=== PATIENT | male | born 1945 | race Caucasian/White ===

== ENCOUNTER → 2017-10-08 | Outpatient (CLI) | payer OTHER, MEDICARE | END | disposition home or self-care (01) | LOC: C.LAB1850 09:26 | PROVIDERS: ATTEND Internal Medicine | DX: R97.20 Elevated prostate specific antigen [PSA] (principal); Z13.220 Encounter for screening for lipoid disorders ==

== ENCOUNTER 2021-01-23 12:39 | Inpatient (IN) ==
--- NOTE | 2020-11-29 09:05 | PAT Medication Instructions ---
Medication Instructions Date of Service November 29, 2020 Home Medications Medication Instructions Recorded tamsulosin 0.4 mg capsule 0.4 mg PO HS #90 cap 10/17/20 cholecalciferol (vitamin D3) 25 mcg (1,000 unit) capsule 25 mcg PO QAM lutein 20 mg capsule 20 mg PO QAM triamcinolone acetonide 0.1 % topical cream 1 applic TOP BID PRN tamsulosin 0.4 mg capsule 0.4 mg PO HS STOP taking 2 weeks before surgery (or as soon as possible if surgery is within 2 weeks) lutein 20 mg capsule 20 mg PO QAM STOP taking 24 hours before surgery triamcinolone acetonide 0.1 % topical cream 1 applic TOP BID PRN DO NOT take the morning of surgery cholecalciferol (vitamin D3) 25 mcg (1,000 unit) capsule 25 mcg PO QAM Take evening before surgery tamsulosin 0.4 mg capsule 0.4 mg PO HS Other Notes If you have any questions please call us at [phone] or [phone] or [phone] or [phone]
--- NOTE | 2020-11-30 13:27 | Anesthesiology Consultation ---
Date of Service November 30, 2020 Assessment & Plan (1) Encounter for pre-operative examination: - Abnormal preop CXR: Noted "2.4 cm opacity which projects over the mid to upper right lung. Possible smaller density projecting over the left lung. These are indeterminate and could reflect pleural plaques. However, pulmonary nodules cannot be excluded." Awaiting response from PCP. - COVID screening: Per assessment on 11/29: Travel screen negative, no known COVID-19 positive contacts or current COVID-19 related symptoms. Patient vaccinated. Surgeon arranging preop COVID testing. Awaiting results. Chart Review Chart Review: Patient seen in Pre Admission Testing Teaching & Discussion Pre-Anesthesia Teaching/Discussion Notes: Instructed NPO after midnight before surgery,except medications with 15 cc of water. Medication instructions provided according to the PAT guidelines. History Surgery Operation Date: 12/12/20 10:55 Proposed Procedures p Transurethral Resection Prostate - Shashi Angelo MD Height/Weight Height: 5 ft 8 in Weight: 63.6 kg Allergies Allergy/AdvReac Type Severity Reaction Status Date / Time No Known Allergies Allergy Verified 11/30/20 10:51 Medications Home Medications Medication Instructions Recorded Confirmed Last Taken cholecalciferol (vitamin D3) 25 25 mcg PO QAM 10/12/20 11/30/20 10/12/20 mcg (1,000 unit) capsule lutein 20 mg capsule 20 mg PO QAM 10/12/20 11/30/20 10/05/20 triamcinolone acetonide 0.1 % 1 applic TOP BID PRN gm 10/12/20 11/30/20 Unknown topical cream tamsulosin 0.4 mg capsule 0.4 mg PO HS #90 cap 10/17/20 11/30/20 Unknown Past Medical History Medical History Abdominal hernia "Small" Anemia Arthritis "Mild" BPH (benign prostatic hyperplasia) Escalante catheter in place Hx of basal cell carcinoma Ear region s/p excision Hx of blood clots LLE possible DVT vs superficial blood clot (3 years ago), was never put on AC/just monitored > resolved Hx of squamous cell carcinoma Head s/p excision Exercise / Class Metabolic Activity II 4-5 Yardwork/Stairs/Walk up hill Past Family History Family History Mother Alzheimer disease Grandfather (Maternal) Diabetes Brother Myocardial infarction Schizophrenia Denies family history of Ovarian cancer Prostate cancer Breast cancer Colorectal cancer Past Surgical History Surgical History H/O knee surgery Right History of colonoscopy History of cystoscopy History of nasal cauterization S/P foot surgery RT LONA'S DEFORMITY REPAIR + BURSA EXCISION [place] teeth removed Past Anesthesia History No Hx of Anesthesia Complications (except remote PONV) and No Family Hx of Anesthesia Complications History of PONV No Hx of Motion Sickness and History of PONV (remote hx) Social History Smoking Status: Never smoker Do You Dip or Chew Tobacco: No Hx Alcohol Use: Yes Alcohol type: beer alcohol intake frequency: 0-2 drinks per day (No ETOH x several months in setting of worsening urinary issues but previously 1-2 beers/night) Hx Substance Use: No substance use type: does not use Review of Systems Patient denies chest pain, shortness of breath, dyspnea on exertion, fever, chills, cough, wheezing, palpitations. Physical Exam Vital Signs VITALS BP 123/64 P 60 TEMP 98.5 SP02 100%RA RESP 16 PHYSICAL Full cervical extension range of motion. Full TMJ range of motion. TMD 4 finger breaths Mallampati Score 3 Dentition: intact, + crowns (including upper front), + cracked tooth (left upper side) Lungs: clear throughout to auscultation Cardiac: regular rate and rhythm, no murmurs noted Spine: normal Carotid arteries: negative bruit Extremities: no edema Short anaya Lab Results Anesthesia Preop Results Results Anesthesia Widget: WBC 6.83 K/uL (4.8-10.8) 11/30/20 Hgb 12.4 g/dL (14.0-18.0) L 11/30/20 Hct 38.4 % (42-52) L 11/30/20 Plt 247 K/uL (130-400) 11/30/20 Na 140 mmol/L (136-145) 11/30/20 K 4.3 mmol/L (3.5-5.1) 11/30/20 Cl 109 mmol/L (98-107) H 11/30/20 CO2 27 mmol/L (21-32) 11/30/20 BUN 24 mg/dl (7-18) H 11/30/20 Creat 0.94 mg/dl (0.6-1.4) 11/30/20 Glucose Level 96 mg/dl (70-99) 11/30/20 Testing Laboratory Results 11/30/20 UA small blood, positive nitrite, negative leuk esterase, 1+ bacteria Electrocardiogram Date: 11/30/20 SB with first degree ACV at 54bpm. LAD. RBBB. Chest X-Ray Date: 11/30/20 No acute cardiopulmonary findings. 2.4 cm opacity which projects over the mid to upper right lung. Possible smaller density projecting over the left lung. These are indeterminate and could reflect pleural plaques. However, pulmonary nodules cannot be excluded. A chest CT is recommended for further evaluation.
--- NOTE | 2021-01-23 11:55 | History & Physical Report ---
Date of Service January 23, 2021 Assessment & Plan (1) Urinary retention due to benign prostatic hyperplasia: Plan: 75-year-old male who is Escalante catheter bound due to BPH and obstruction. Presents for TURP today. History of Present Illness Chief Complaint: BPH with urinary retention Primary Care Provider: Antione Matthews MD 75-year-old male who I previously saw and is scheduled for a TURP as he is Escalante catheter bound due to significantly enlarged prostate. Due to Covid, his cases have been rescheduled and he needed another history and physical. Preop urine culture with staph and he took 7 days of Bactrim prior. He has had no other issues preoperatively. Allergies Allergy/AdvReac Type Severity Reaction Status Date / Time No Known Allergies Allergy Verified 01/13/21 09:46 Home Medications Medication Instructions Recorded Confirmed Type cholecalciferol (vitamin D3) 25 25 mcg PO QAM 10/12/20 01/13/21 History mcg (1,000 unit) capsule lutein 20 mg capsule 20 mg PO QAM 10/12/20 01/13/21 History triamcinolone acetonide 0.1 % 1 applic TOP BID PRN gm 10/12/20 01/13/21 History topical cream tamsulosin 0.4 mg capsule 0.4 mg PO HS #90 cap 10/17/20 01/13/21 Rx sulfamethoxazole 800 1 tab PO BID 14 Days #28 tab 01/08/21 01/13/21 Rx mg-trimethoprim 160 mg tablet (Bactrim DS) Past Med/Surg History Medical History Abdominal hernia "Small" Anemia Arthritis "Mild" BPH (benign prostatic hyperplasia) Escalante catheter in place Hx of basal cell carcinoma Ear region s/p excision Hx of blood clots LLE possible DVT vs superficial blood clot (3 years ago), was never put on AC/just monitored > resolved Hx of squamous cell carcinoma Head s/p excision Surgical History H/O knee surgery Right History of colonoscopy History of cystoscopy History of nasal cauterization S/P foot surgery RT LONA'S DEFORMITY REPAIR + BURSA EXCISION [place] teeth removed Family History Mother Alzheimer disease Grandfather (Maternal) Diabetes Brother Myocardial infarction Schizophrenia Denies family history of Ovarian cancer Prostate cancer Breast cancer Colorectal cancer Social History Smoking Status: Never smoker Second Hand Exposure: Yes; Hx Alcohol Use: Yes Alcohol type: beer Hx Substance Use: No Preferred Language: Spanish Communication Ability: Effective Visual Impairment: No Limitations Hearing Ability: Hard of Hearing Market Intelligence Consultant Required: No Beliefs That Will Affect Care: None marital status: Single Current Living Situation: Significant Other current occupational status: retired Feels Safe at Home: Yes Childhood Exposure to Second-Hand Smoke: Yes Dental Care, Regularly: Yes Physical Activity Frequency: Daily Seatbelt Use: always Sunscreen Use: No Assistive Devices: Glasses Review of Systems 14 point review of systems negative outside of what is listed above in HPI Physical Exam Physical Exam: General: Alert and oriented, no acute distress HEENT: Normocephalic, mucous membranes moist Cardiovascular: Regular rate Pulmonary: Nonlabored respirations Abdomen: Nondistended : Deferred to the OR. Extremities: Moves all 4 spontaneously Neuro: No gross deficits Skin: Warm, dry, no rashes noted
[~2021-01-23 12:39] MED LIST: GENTAMICIN SULFATE 160 MG in DEXTROSE 5% 100 ML IV SCH; LR 15ML/HR IV SCH; VANCOMYCIN HCL 1,000 MG in SODIUM CHLORIDE 0.9% 250 ML IV SCH; VANCOMYCIN HCL 1,000 MG in SODIUM CHLORIDE 0.9% 500 ML IV SCH; ceFAZolin 2000MG 2,000 MG/15 ML SYR IV SCH
[2021-01-23] MEDS ORDERED: ATROPINE SULFATE 0.1 MG/ML 10ML SYR IV PRN (12:46)
[2021-01-23] MEDS ORDERED: ePHEDrine sulfate 50 MG/ML AMP IV PRN (12:46)
[2021-01-23] MEDS ORDERED: ONDANSETRON INJ 2 MG/ML 2 ML VIAL IV PRN (12:46)
[2021-01-23] MEDS ORDERED: fentaNYL citrate 100 MCG/2 ML VIAL IV PRN (12:46)
[2021-01-23] MEDS ORDERED: fentaNYL citrate 100 MCG/2 ML VIAL ONE ×2 (13:40→14:33)
[2021-01-23] MEDS ORDERED: MIDAZOLAM HCL 1 MG/ML 2ML VIAL ONE (13:40)
[2021-01-23] MEDS ORDERED: VANCOMYCIN CONSULT ACTIVE PRN (14:00)
[2021-01-23] MEDS ORDERED: GENTAMICIN CONSULT ACTIVE PRN (14:00)
[2021-01-23] MEDS ORDERED: PROPOFOL IV EMULSION 10 MG/ML 20 ML VIAL IV ONE ×2 (14:29→14:32)
[2021-01-23] MEDS ORDERED: ONDANSETRON INJ 2 MG/ML 2 ML VIAL ONE (14:29)
[2021-01-23] MEDS ORDERED: LIDOCAINE 2% 2 ML VIAL/AMP(20MG/ML) INFIL ONE (14:29)
[2021-01-23] MEDS ORDERED: DEXAMETHASONE SOD INJ 4 MG/ML VIAL ONE (14:29)
[2021-01-23] MEDS ORDERED: ePHEDrine sulfate 50 MG/ML AMP ONE (14:32)
[2021-01-23] MEDS ORDERED: BELLADONNA/OPIUM SUPP 60 MG SUPP PR ONE ×2 (16:06→16:12)
[2021-01-23] MEDS ORDERED: KETOROLAC 30 MG/ML VIAL ONE (16:34)
[2021-01-23] MEDS ORDERED: ACETAMINOPHEN 325 MG TAB PO PRN (16:49)
[2021-01-23] MEDS ORDERED: oxyCODONE HCL IR 5 MG TAB (IMMEDIATE RELEASE) PO PRN (16:49)
--- NOTE | 2021-01-23 16:59 | Post Operative Brief Note ---
PG Immediate Post Op with CF Date of Surgery January 23, 2021 Pre & Post Diagnosis Operation Date: 01/23/21 14:15 Pre-Op Diagnosis: Urinary Retention due to Benign Prostatic Hypertrophy Post-Op Diagnosis: Urinary Retention due to Benign Prostatic Hypertrophy I identified the patient and participated in the time-out.: Yes Procedure Operation Date: 01/23/21 14:15 Actual Procedures p Transurethral Resection Prostate(Not Applicable) - Shashi Angelo MD Surgeon Shashi Angelo MD Front Office Specialist None Estimated Blood Loss 200 Findings Consistent with Post-Op Diagnosis 1. Significantly enlarged prostate with trilobar hyperplasia in 4 to 4-1/2 cm prostatic fossa. 2. Ureteral orifices near bladder neck but uninvolved 3. Due to size of prostate and the fact that it was fairly vascular, after 2 hours of resection opted to stop and place Escalante catheter in place on CBI. Patient may require second stage TURP due to size of prostate. Specimens Specimen Description: A. Prostate Chips Drains Escalante Catheter (24fr 3way 30cc balloon, on CBI) Anesthesia Type General Complications None Disposition Accompanied Patient To Recovery: Yes Disposition: Recovery Room Overlapping Procedure I was present for: the critical portions of procedure.
[2021-01-23] MEDS ORDERED: LACTATED RINGER'S 1,000 ML IV SCH (17:00)
--- NOTE | 2021-01-23 17:07 | Operative Report ---
PG Post Operative Report Pre & Post Diagnosis Operation Date: 01/23/21 14:15 Pre-Op Diagnosis: Urinary Retention due to Benign Prostatic Hypertrophy Post-Op Diagnosis: Urinary Retention due to Benign Prostatic Hypertrophy I identified the patient and participated in the time-out.: Yes Procedure Operation Date: 01/23/21 14:15 Actual Procedures p Transurethral Resection Prostate(Not Applicable) - Shashi Angelo MD Surgeon Shashi Angelo MD Air Conditioning Unit Tester None Estimated Blood Loss 200 Findings Consistent with Post-Op Diagnosis 1. Significantly enlarged prostate with trilobar hyperplasia in 4 to 4-1/2 cm p rostatic fossa. 2. Ureteral orifices near bladder neck but uninvolved 3. Due to size of prostate and the fact that it was fairly vascular, after 2 hours of resection opted to stop and place Escalante catheter and place on CBI. Patient may require second stage TURP due to size of prostate if does not pass void trial. Specimens Prostate chips Drains 24Fr [address] hematuria catheter on CBI Anesthesia Type General Complications None Disposition Accompanied Patient To Recovery: Yes Disposition: Recovery Room Indications 75-year-old male currently in urinary retention due to BPH. Cystoscopy revealed significant trilobar hyperplasia with a significant intravesical component. Prostatic fossa was 4 to 4-1/2 cm. Preop urine culture was staph aureus and he was treated with 7 days of Bactrim. He presents for TURP. Description of Procedure After informed consent was obtained, the patient was transported to the operative suite. General anesthesia was induced. They were placed in dorsal lithotomy position and prepped and draped in sterile fashion. They received preoperative vancomycin and gentamicin based on preop urine culture. An appropriate surgical timeout was performed. The penile urethra was sequentially dilated from 20-30 Welsh. 27 Welsh resectoscope was inserted. Knox cystoscopy revealed no lesions. The ureteral orifices were near the bladder neck. I started at the 5 o'clock position of the prostate and vaporized this down to just distal to the verumontanum. I then moved over to the 7 o'clock position of the prostate and vaporized this down to just distal to the verumontanum. I repeatedly checked the ureteral orifice ease to ensure they were not involved, which they were not. Due to the significant size and vascularity of his prostate, after 2 hours of resection I opted to place a Escalante catheter and put him on CBI and possibly bring him back for a second stage TURP if he is unable to pass a voiding trial. I cut a hole at the tip of the 24 Welsh three-way hematuria catheter and placed this over a Super Stiff wire to avoid undermining the bladder neck. The balloon was inflated with 30 cc of sterile water. I irrigated the catheter while on traction and urine was light red. This concluded the end of the case. The catheter was taped to the leg on traction and was hooked up to CBI. A belladonna suppository was placed for pain control. All counts were correct at the end of the case. I was present scrubbed and actively participated for the entire to the procedure. Plan: 1. Will monitor patient overnight on CBI. We will continue Bactrim treatment. We will check hemoglobin and BMP in the morning. Plan will be to wean CBI and discharge home with catheter if is clear in the morning. I attest to the content of the Intraoperative Record and any orders documented therein. Any exceptions are noted below.
--- NOTE | 2021-01-23 17:19 | Anesthesiology Progress Note ---
Date of Service January 23, 2021 Anesthesia Post Procedure Vital Signs Vital Signs: Temp Pulse Pulse Resp BP Pulse Ox 01/23/21 17:15 62 19 116/60 100 01/23/21 17:05 58 L 17 112/64 97 01/23/21 16:55 59 L 16 107/62 100 01/23/21 16:48 36.0 C L 56 L 12 127/69 100 01/23/21 13:22 36.5 C 58 L 20 169/88 H 98 Pain Intensity Penis: Pain Intensity: 2 Transfer of Care Handoff Completed per policy Notes Mental Status: alert / awake / arousable Patient Amnestic to Procedure: Yes Nausea / Vomiting: adequately controlled Pain: adequately controlled Airway Patency, RR, SpO2: stable & adequate BP & HR: stable & adequate Hydration State: stable & adequate Anesthetic Complications: no major complications apparent and Pt Satisfied with anesthetic care
[2021-01-23] MEDS ORDERED: TAMSULOSIN HCL 0.4 MG CAP PO SCH (21:00)
[2021-01-23] MEDS: OXYBUTYNIN CHLORIDE 5 MG TAB PO SCH (22:17)
--- NOTE | 2021-01-24 07:02 | Urology Progress Note ---
Date of Service January 24, 2021 Assessment & Plan (1) BPH (benign prostatic hyperplasia): Plan: 75-year-old male who is status post TURP on 01/23/2021. Monitored overnight on CBI. Plan: Afebrile with stable vitals. Pain well controlled. Escalante catheter with light pink urine on slow drip CBI on traction. Traction taken off and left on slow drip. Nursing advised to clamp CBI and allow patient to walk. We will reassess hematuria consistency and hopefully discharge later today Can have regular diet Continue Bactrim We will put in follow-up to see him in roughly 1 week for void trial. Discussed that he may need second stage TURP due to size of prostate. Admission and Anticipated Discharge Date Admission Date: January 23, 2021 Subjective No acute issues overnight. Urine is light pink on slow drip CBI still on traction. Pain well controlled. Afebrile with stable vitals. Escalante was taken off traction and kept on slow drip. Patient yet to ambulate so adviced walking this morning. Hemoglobin 11 this morning, was 12 8 preoperatively. No concern, likely mostly delusional. Creatinine stable. Review of Systems Review of Systems: 14 point review of systems negative outside of what is listed above in HPI Physical Exam Physical Exam: General: Alert and oriented, no acute distress HEENT: Normocephalic, mucous membranes moist Cardiovascular: Regular rate Pulmonary: Nonlabored respirations Abdomen: Soft, nontender, nondistended : Circumcised phallus with orthotopic meatus. 24 Syriac three-way catheter on slow drip CBI with light pink urine, on traction. Extremities: Moves all 4 spontaneously Neuro: No gross deficits Skin: Warm, dry, no rashes noted Results & Data ([facility]) Vital Signs (Past 12 Hours) Vital Signs Temp Pulse Resp BP Pulse Ox 01/24/21 06:56 37.3 C 56 L 14 118/54 L 97 01/23/21 19:20 36.8 C 60 16 105/60 98 PG Care Time/CCT Total # of Minutes Spent Total Time Spent with Patient: Total time spent is greater than 50% in coordination of care (as documented) at patient's floor/unit and/or counseling patient: [place] [address] Subseq Hosp Care Lvl 2 Patient Type Established Diagnoses BPH (benign prostatic hyperplasia) N40.0
[2021-01-24 07:06] LABS: BUN Creatinine Ratio 19.1 (10-20); Calcium 8.1 mg/dl (8.5-10.1); Creatinine Clr Calc Pharmacy 67.6 ml/min; Est GFR (African American) 98.1 ml/min; Est GFR (Non-African American) 84.6 ml/min; Potassium 4.5 mmol/L (3.5-5.1)
[2021-01-24] MEDS: OXYBUTYNIN CHLORIDE 5 MG TAB PO SCH ×2 (08:46→13:49)
[2021-01-24] MEDS ORDERED: SULFAMETHOXAZOLE/TRIMETHOPRIM DS 800/160MG TAB PO SCH (09:00)
--- NOTE | 2021-02-01 13:11 | Discharge Summary ---
Date of Service February 01, 2021 Admission HPI Per Admitting Provider 75-year-old male who I previously saw and is scheduled for a TURP as he is Donohue catheter bound due to significantly enlarged prostate. Due to Covid, his cases have been rescheduled and he needed another history and physical. Preop urine culture with staph and he took 7 days of Bactrim prior. He has had no other issues preoperatively. Principal Diagnosis BPH with urinary retention Discharge Exam General: Alert and oriented, no acute distress HEENT: Normocephalic, mucous membranes moist Cardiovascular: Regular rate Pulmonary: Nonlabored respirations Abdomen: Nondistended : 24 Cook Islander three-way Donohue cath draining light red urine Extremities: Moves all 4 spontaneously Neuro: No gross deficits Skin: Warm, dry, no rashes noted Discharge Data Allergies Allergy/AdvReac Type Severity Reaction Status Date / Time No Known Allergies Allergy Verified 01/23/21 13:00 Procedures Performed Operation Date: 01/23/21 14:15 Actual Procedures p Transurethral Resection Prostate(Not Applicable) - Shashi Angelo MD Hospital Course (1) Urinary retention due to benign prostatic hyperplasia: 75-year-old male with history of BPH and urinary retention status post TURP Plan: 1. Continuous bladder irrigation capped and urine remains light pink. 2. Hemodynamically stable, afebrile and labs stable. 3. Patient stable for discharge home with Donohue catheter. He will return in 1 week for a void trial in clinic. Total Time Total Time Spent Total Time Spent (In Minutes): 10 minutes Discharge Plan Discharge Items Patient Disposition: Home - Self-Care Reason For Visit: Urinary Retention due to BPH Discharge Diagnosis: BPH with urinary retention Activity: Per Instructions section Lifting: No more than 5 pounds Bathing: No limitations Bathing Comment: Can shower with donohue catheter Sexual Activity: Wait until after follow-up appointment Exercise/Sports: None Driving/Machine Use: No limitations Weightbearing: Full weightbearing Non-emergency contact: Surgeon Call non-emergency contact if: you have any medication questions, your pain is not controlled and your temperature is above 101 Follow-up/Referrals: Antione Matthews MD [Primary Care Provider] - Shashi Angelo MD [Physician] - Diet: Regular Addtl Attending Provider Instructions: Please call our office at [phone] with any questions, concerns or need to reschedule appointments for any reason. We are happy to assist you. -Continue your home medications unless changes listed below. -Finish your course of Bactrim -Nursing will show you how to take care of your catheter. -Take Ditropan as needed for Donohue catheter discomfort. This can cause dry eyes, dry mouth, blurry vision and constipation -Take stool softener twice daily to avoid constipation -Call the office if your Donohue catheter is not draining, worsening passage of blood clots through your urineor you have fevers greater than 101 F -You will get called regarding a visit to have your catheter removed and to ensure you can urinate. Pending Studies at Discharge: No Stand-Alone Forms: My [facility] [employer], Smoking Cessation Medications and DC Order Prescriptions: New oxybutynin chloride [Ditropan XL] 5 mg tablet extended release 24hr 5 mg PO DAILY Qty: 10 RF: 0 docusate sodium [Col-Rite] 100 mg capsule 100 mg PO BID Qty: 20 RF: 0 Continued tamsulosin 0.4 mg capsule 0.4 mg PO HS Qty: 90 RF: 1 sulfamethoxazole-trimethoprim [Bactrim DS] 800-160 mg tablet 1 tab PO BID 14 Days Qty: 28 RF: 0 triamcinolone acetonide 0.1 % cream 1 applic TOP BID PRN (Reason: rash flare ups) RF: 0 cholecalciferol (vitamin D3) 25 mcg (1,000 unit) capsule 25 mcg PO QAM RF: 0 lutein 20 mg capsule 20 mg PO QAM RF: 0 Discharge Orders: Discharge Order (Routine); Ordered 01/24/21 Ordered By: Cristina Monterroso/Other Patient Handouts: Emptying and Cleaning Your ..., Discharge Instructions Caring for ... Admission Data Admit Date/Time: 01/23/21 16:49 Attending Provider: Shashi Angelo Admit Provider: Shashi Angelo Primary Care Provider: Antione Matthews Coding Level of Care Code Established Pt D/C DAY MANAGEMENT <30 MINS Patient Type Established Diagnoses Urinary retention due to benign prostatic hyperplasia N40.1; R33.8
== END 2021-01-24 16:11 | disposition home or self-care (01) | DRG 714 ==
LOC: ASU 12:39 → PACUINP 16:49 → ASUINP 01-24 06:54
DX: R33.9 Retention of urine, unspecified; Z86.718 Personal history of other venous thrombosis and embolism; N40.1 Benign prostatic hyperplasia with lower urinary tract symptoms; Z79.899 Other long term (current) drug therapy; Z20.822 Contact with and (suspected) exposure to COVID-19